=== PATIENT | male | born 1945 | race Caucasian/White ===

== ENCOUNTER 2017-11-21 21:51 | Inpatient (IN) | payer MEDICARE, MEDICAID ==
[~2017-11-21] VITALS: Ht 167.6 cm; Wt 93.3 kg
[~2017-11-21 21:51] MED LIST: ACCUPRIL; ACCURETIC 20-21 EACH PO; ADULT LOW DOSE81 MG PO; ALDACTONE25 MG PO; AMARYL4 MG PO; APAP500 PO; ASPIR 8181 MG PO; ASPIRIN325 PO; BENADRYL25 MG PO; CARVEDILOL12.5 MG PO; CARVEDILOL25 MG PO; CIPRO500 MG PO; CLONIDINE PO; COREG PO; COREG6.25 MG PO; COUMADIN7.5 MG; CRESTOR PO; EZETIMIBE PO; FIBERCON625 M1 PO; FLAGYL500 MG PO; Fenofibrate PO; GLUTOSE GEL 1515 G1 PO; HUMALOG100 UNIT/1 SUBQ; HYDRALAZINE 5050 MG; HYDROCODONE-AP1 EAC6 PO; IRON325 PO; KEPPRA 500 MG500 M1 PO; KLOR-CON 1010 MEQ PO; LANTUS SC; LANTUS100 UNIT/M SUBQ; LASIX 80 MG TAB80 MG PO; LEVAQUIN 500 M500 M2 PO; LEVEMIR SUBQ; LEXAPRO20 MG; LEXAPRO20 MG PO; LIPITOR80 MG PO; LISINOPRIL10 MG PO; LISINOPRIL20 MG PO; LISINOPRIL40 MG PO; LOPERAMIDE 2 MG2 M1 PO; MELATONIN 1 MG1 EACH; METFORMIN HCL1000 M1 PO; METFORMIN PO; NIASPAN 500 MG500 M1 PO; NORVASC 5 MG TAB5 MG PO; NORVASC10 MG; NOVOLOG FL100 UNIT/M SUBQ; NOVOLOG100 UNIT/1 SQ; NOVOLOG100 UNIT/1 SUBQ; ONDANSETRON HCL4 M2 PO; OXYCODONE H5 MG/5 ML; PAXIL10 MG PO; PLAVIX 75 MG TA75 M1 PO; PLAVIX 75 MG TA75 MG PO; PREVACID30 MG; PROAIR HFA8.5 GM INH; PROMS25 WY RECTAL; PROTONIX40 M1 PO; RANEXA500 MG PO; TEKTURNA300 MG PO; TENORMIN25 MG; TRAZODONE HCL50 MG PO; TRIAMCINOLONE A80 G2 TOP; VIAGRA100 MG PO; VITAMIN D32000 UNIT PO; XANAX 0.5 MG0.5 MG PO; ZANTAC 150MG T150 MG PO; ZETIA10 MG PO; [UNRECOGNIZED DRUG - OTHER] PO
[2017-11-21 21:52] VITALS: BP 143/76
[2017-11-21] MEDS ORDERED: KLOR-CON25 ME1 PO (21:58)
[2017-11-21] MEDS ORDERED: ALLOPURINOL 10100 M1 PO (21:59)
[2017-11-21] MEDS ORDERED: IMDUR 60 MG TAB60 M1 PO (21:59)
[2017-11-21] MEDS ORDERED: XANAX 0.5 MG0.5 MG PO (22:00)
[2017-11-21] MEDS ORDERED: B12INJ IM (22:02)
[2017-11-21] MEDS ORDERED: LEVEMIR SUBQ (22:02)
[2017-11-21] MEDS ORDERED: BRILINTA90 MG PO (22:03)
[2017-11-21 22:15] LABS: HEMATOCRIT 40.1 % (42.0-52.0); MCH 31.1 pg (26.0-34.0); MCHC 32.5 g/dL (28.0-37.0); MCV 95.6 fL (80.0-100.0); MPV 8.6 fl. (7.2-11.1); NUCLEATED RBCS 0 /100WBC; PLATELET COUNT* 267 thou/uL (150-400); RBC 4.19 mil/uL (4.50-6.00); RDW-CV 16.2 % (10.5-14.5); WBC 15.1 thou/uL (4.0-11.0)
[2017-11-21 22:20] LABS: CALCIUM 8.8 mg/dL (8.5-10.1); CREATININE 3.1 mg/dL (0.6-1.3); POTASSIUM 4.8 mmol/L (3.5-5.1)
[2017-11-21 22:31] LABS: ALBUMIN 3.5 g/dL (3.4-5.0); TOTAL BILIRUBIN 0.6 mg/dL (<0.1-1.0); TOTAL PROTEIN 7.4 g/dL (6.4-8.2); TROPONIN-I LEVEL 0.06 ng/mL (<0.06)
[2017-11-21 22:48] LABS: ABSOLUTE BASOPHILS 0.2 thou/uL (0.0-0.2); ABSOLUTE EOSINOPHILS 0.8 thou/uL (0.0-0.7); ABSOLUTE LYMPHOCYTES 1.7 thou/uL (0.8-5.3); ABSOLUTE MONOCYTES 1.1 thou/uL (0.0-1.2); ABSOLUTE NEUTROPHILS 11.5 thou/uL (1.6-8.1)
[2017-11-21 22:51] LABS: PLATELET ESTIMATE ADEQUATE
[2017-11-22 00:52] VITALS: BP 132/84
[2017-11-22 01:14] VITALS: BP 131/81
[2017-11-22] MEDS ORDERED: LASIX 40 MG TAB40 M2 PO (01:50)
[2017-11-22] MEDS ORDERED: LASIX 20 MG TAB20 MG PO (01:51)
[2017-11-22] MEDS ORDERED: POTASSIUM 25 M25 MEQ PO (01:53)
[2017-11-22] MEDS ORDERED: POTASSIUM20 PO (01:54)
[2017-11-22] MEDS ORDERED: VITAMIN D31000 UNI2 PO (01:55)
[2017-11-22] MEDS ORDERED: XANAX 0.5 MG0.5 MG PO (01:59)
[2017-11-22] MEDS ORDERED: COLACE100 MG PO (02:00)
[2017-11-22] MEDS ORDERED: ANUCORT-HC25 MG RECTAL (02:00)
[2017-11-22] MEDS ORDERED: KEPPRA250 MG PO (02:05)
[2017-11-22] MEDS ORDERED: NITROGLYCERIN0.4 MG SUBLING (02:06)
[2017-11-22] MEDS ORDERED: B12INJ IM (02:07)
[2017-11-22] MEDS ORDERED: BRILINTA90 MG PO (02:08)
[2017-11-22] MEDS ORDERED: REGLAN 10 MG TA10 MG PO (02:11)
[2017-11-22 04:00] VITALS: BP 114/65
[2017-11-22 08:40] VITALS: BP 125/74
[2017-11-22 11:23] VITALS: BP 122/69
--- NOTE | 2017-11-22 14:38 | EKG ---
[place] [address] ELECTROCARDIOGRAM REPORT Name: CARLOS GUTIERREZ Room: [address] ADM IN [facility]#: [id number] Admission: 11/21/17 Attend Phys: Philip Bonilla Discharge: Date of : 41 Report #: [id number] THIS REPORT FOR: //name// [facility] ED Test Date: 2017-11-21 Test Time: 22:53:51 Pat Name: CARLOS GUTIERREZ Department: Room: [address] Gender: M Sustainable Landscape Architect: GR : 1945 Requested By: Qamar Cherry Order Number: [id number] MD: Seymour Suarez Measurements Intervals [place] Rate: 109 P: 0 IA: 55 QRS: -71 QRSD: 208 T: 110 QT: 443 QTc: 597 Interpretive Statements Ventricular-paced complexes No further rhythm analysis attempted due to paced rhythm Left atrial enlargement RBBB and LAFB Compared to ECG 02/21/2016 14:08:47 Atrial abnormality now present Left anterior fascicular block now present Right bundle-branch block now present Electronically Signed On 11-22-2017 14:38:24 INDUSTRIAL RELATIONS MANAGER by Seymour Suarez [email or web address] <ELECTRONICALLY SIGNED> By: Seymour Suarez MD, FACC 11/22/17 1438 [id number] Seymour Suarez MD, FAC /EPI
--- NOTE | 2017-11-22 14:38 | EKG ---
[place] [address] ELECTROCARDIOGRAM REPORT Name: CARLOS GUTIERREZ Room: [address] ADM IN [facility]#: [id number] Admission: 11/21/17 Attend Phys: Philip Bonilla Discharge: Date of : 41 Report #: [id number] THIS REPORT FOR: //name// [facility] ED Test Date: 2017-11-21 Test Time: 21:56:05 Pat Name: CARLOS GUTIERREZ Department: Room: [facility] Gender: M Statistical Programmer: FAUZIA : 1945 Requested By: Qamar Cherry Order Number: [id number] MD: Seymour Suarez Measurements Intervals [place] Rate: 89 P: 0 OK: 166 QRS: 230 QRSD: 218 T: 85 QT: 527 QTc: 642 Interpretive Statements A-V dual-paced complexes w/ some inhibition No further analysis attempted due to paced rhythm Compared to ECG 02/21/2016 14:08:47 No significant changes Electronically Signed On 11-22-2017 14:38:15 HEALTH RESEARCHER by Seymour Suarez [email or web address] <ELECTRONICALLY SIGNED> By: Seymour Suarez MD, FAC 11/22/17 1438 [id number] [id number] Seymour Suarez MD, [facility] /EPI
[2017-11-22 15:58] VITALS: BP 107/62
--- NOTE | 2017-11-25 09:52 | CON ---
[address] [address] CONSULTATION Name: CARLOS GUTIERREZ Room: [address]#: [id number] Admission: 11/21/17 Attend Phys: Philip Bonilla Discharge: 11/22/17 Date of : 41 Report #: [id number] THIS REPORT FOR: //name// CC: Larry Peace DATE OF SERVICE: 11/22/2017 INPATIENT CONSULTATION PRIMARY INSTRUCTOR PHYSICAL: Kimi Yoon MD, [facility]. PRIMARY CARE DOCTOR: Dr. Myranda johns in [place]. CHIEF COMPLAINT: Chest pain and shortness of breath. HISTORY OF PRESENT ILLNESS: The patient is a 72-year-old man with a history of known severe LV dysfunction due to an ischemic cardiomyopathy, had been having trending elevations in his cardiac MEMS monitor, increasing shortness of breath and most recently had a severe episode of chest discomfort last evening. [facility]. His initial ECG demonstrates a paced rhythm. He has a history of BiV with permanent pacemaker 4 size ICD. He denies cardiac defibrillator therapies or shocks. Overnight, his chest pain symptoms were relieved with medical therapy including IV heparin and nitrates, but his cardiac troponin level was abnormal this morning. His presenting cardiac troponin level was 0.06, trending to 0.14 and this morning is 1.27. This morning, he is chest pain free though. He had been having increasing shortness of breath over the last 5-7 days and had been in close contact with the nurse practitioner at [facility]. He denies other symptoms of fevers, chills, cough. He has been compliant with his medications. He has been in a skilled facility. PAST MEDICAL HISTORY: History of prior 3-vessel CABG in 2009, hypertension, diabetes mellitus, GERD, chronic systolic congestive heart failure. While we do not have records from [facility], we do have his most recent PCI at this institution, which demonstrated the following coronary anatomy. In February 2016, the patient had a 90% distal left main stenosis, occlusion of the proximal LAD, circumflex, patent vein graft to the distal circumflex and patent LANE to LAD with a distal 40% stenosis in his [place] vessel. His ejection fraction is known to be in the less than 20% range. He has had a BiV ICD. At that 2015 visit, he did undergo PCI to his [place] RCA. [place] [address] CONSULTATION Name: CARLOS GUTIERREZ Room: [address]#: [id number] Admission: 11/21/17 Attend Phys: Philip Bonilla Discharge: 11/22/17 Date of : 41 Report #: [id number] RESIDENTIAL MEDICATIONS: Include the following: Lasix 20 mg Friday, Friday, Friday, Friday, Friday, potassium chloride 40 mEq on those same days, Lasix 40 mg b.i.d. Mondays and only, Imdur 60 mg daily, Xanax 0.5 mg p.r.n., allopurinol, vitamin D, Protonix, aspirin 81 mg daily, alprazolam, Aldactone 25 mg daily, nitroglycerin p.r.n., iron, Brilinta 90 mg p.o. b.i.d., atorvastatin 80 mg p.o. at bedtime. REVIEW OF SYSTEMS: CARDIOVASCULAR: Positive chest discomfort, positive dyspnea on exertion. No edema. Positive orthopnea, positive PND. CENTRAL NERVOUS SYSTEM: No seizure or paralysis. GENERAL: No weight loss, fevers or chills. RESPIRATORY: Positive cough, no sputum production. ENDOCRINE: Positive diabetes. GASTROINTESTINAL: No nausea or vomiting. GENITOURINARY: No dysuria or hematuria. HEMATOLOGIC: No anemia or bleeding disorders. ALLERGIES: Positive seasonal allergies. PSYCHIATRIC: Positive depression, anxiety. SKIN: No rashes. EYES: Denies any blurred vision or loss of vision. SOCIAL HISTORY: He is a nonsmoker. FAMILY HISTORY: Positive, brother has had CABG as well. LABORATORY DATA: Hemoglobin is 13.0, white blood count is 15.1, platelet count is 267,000. Sodium is 137, potassium is 3.2, chloride is 118, BUN is 77, creatinine is 3.1. INR is 1.0. Troponins as noted above. Imaging of the chest shows no acute cardiopulmonary process. IMPRESSION: 1. Unstable angina. He has evidence of a small non-ST elevation myocardial infarction and the patient with a known severe left ventricular dysfunction. He had been having increasing dyspnea and heart failure symptoms as well over the past 5-7 days. He has been compliant with his medications including Brilinta. At this point in time, I think he should be considered for evaluation with angiography, but I think it would be more prudent for this to be done at [facility] as per the family's wishes, which I think is appropriate as we do not have his most recent angiographic data. 2. Chronic kidney disease as noted above. 3. Ischemic cardiomyopathy, [id number] systolic dysfunction. The patient had been having trending volume increases on his cardiac monitoring device as well as increasing clinical symptoms for heart failure and has been on aggressive diuretic therapy and likely will need IV diuresis in the hospital. 4. Status post biventricular implantable cardioverter defibrillator as noted [address] [place] [address] CONSULTATION Name: GUTIERREZCARLOS Room: [address] IN [facility]#: [id number] Admission: 11/21/17 Attend Phys: Philip Bonilla Discharge: 11/22/17 Date of : 41 Report #: [id number]. He has not had any defibrillator therapies delivered. 5. Diabetes mellitus. We will arrange for transfer if [facility] is willing to take the patient in transfer. <ELECTRONICALLY SIGNED> By: Seymour Suarez MD, FACC 11/25/17 0952 [id number] 1916Seymour Suarez MD, FACC /nt
== END 2017-11-22 16:21 | disposition short-term general hospital (02) | DRG 291 ==
LOC: M.ERS 21:51 → M.2W 23:12 → M.TBA-ER 23:12 → M.2W 11-22 01:03
PROVIDERS: Emergency Medicine; ADMIT Internal Medicine
DX: I13.0 Hypertensive heart and chronic kidney disease with heart failure and stage 1 through stage 4 chronic kidney disease, or unspecified chronic kidney disease (principal); I50.23 Acute on chronic systolic (congestive) heart failure; N18.4 Chronic kidney disease, stage 4 (severe); I25.110 Atherosclerotic heart disease of native coronary artery with unstable angina pectoris; K21.9 Gastro-esophageal reflux disease without esophagitis; E11.22 Type 2 diabetes mellitus with diabetic chronic kidney disease; I25.5 Ischemic cardiomyopathy; E78.5 Hyperlipidemia, unspecified; E11.40 Type 2 diabetes mellitus with diabetic neuropathy, unspecified; F41.9 Anxiety disorder, unspecified; I25.2 Old myocardial infarction; Z95.1 Presence of aortocoronary bypass graft; Z95.810 Presence of automatic (implantable) cardiac defibrillator; Z79.02 Long term (current) use of antithrombotics/antiplatelets; Z79.4 Long term (current) use of insulin; Z79.82 Long term (current) use of aspirin; Z79.899 Other long term (current) drug therapy